=== PATIENT | female | born 2000 | race Caucasian/White ===

== ENCOUNTER 2020-05-02 13:56 | Emergency (ER) | payer OTHER ==
[~2020-05-02] VITALS: Ht 157.5 cm; Wt 136.1 kg
== END 2020-05-02 18:46 | disposition home or self-care (01) ==
LOC: ER 13:56
DX: O26.891 Other specified pregnancy related conditions, first trimester (principal); R10.2 Pelvic and perineal pain; Z3A.01 Less than 8 weeks gestation of pregnancy; Z03.818 Encounter for observation for suspected exposure to other biological agents ruled out

== ENCOUNTER 2020-11-25 10:19 | Emergency (ER) | payer OTHER ==
[~2020-11-25] VITALS: Ht 157.5 cm; Wt 136.1 kg
[2020-11-25] MEDS ORDERED: PRENATABS RX T1 EACH (10:50)
== END 2020-11-25 14:26 | disposition home or self-care (01) ==
LOC: ER 10:19
DX: O26.851 Spotting complicating pregnancy, first trimester (principal); O36.80X1 Pregnancy with inconclusive fetal viability, fetus 1; Z34.01 Encounter for supervision of normal first pregnancy, first trimester

== ENCOUNTER → 2020-12-23 | Outpatient (CLI) | payer OTHER ==
[~2020-12-23] MED LIST: PRENATABS RX T1 EACH
== END | disposition home or self-care (01) ==
LOC: PRENATAL 08:50
PROVIDERS: ATTEND Obstetrics & Gynecology Maternal & Fetal Medicine
DX: O99.211 Obesity complicating pregnancy, first trimester (principal); O36.80X1 Pregnancy with inconclusive fetal viability, fetus 1; Z36.89 Encounter for other specified antenatal screening; Z3A.12 12 weeks gestation of pregnancy

== ENCOUNTER 2021-02-08 12:44 | Outpatient (CLI) | payer OTHER | END 2021-02-08 14:24 | disposition home or self-care (01) | LOC: PRENATAL 12:44 | PROVIDERS: ATTEND Obstetrics & Gynecology Maternal & Fetal Medicine | DX: O35.0XX1 Maternal care for (suspected) central nervous system malformation in fetus, fetus 1 (principal); O35.3XX1 Maternal care for (suspected) damage to fetus from viral disease in mother, fetus 1; O98.512 Other viral diseases complicating pregnancy, second trimester; O99.212 Obesity complicating pregnancy, second trimester; O44.02 Complete placenta previa NOS or without hemorrhage, second trimester; Z36.89 Encounter for other specified antenatal screening; Z3A.18 18 weeks gestation of pregnancy ==

== ENCOUNTER 2021-03-07 08:22 | Outpatient (CLI) | payer OTHER ==
[2021-03-07] MEDS ORDERED: FOLIC ACID1 MG (16:04)
[2021-03-07] MEDS ORDERED: CLONAZEPAM1 MG (16:05)
[2021-03-07] MEDS ORDERED: PROGESTERONE200 MG (16:05)
== END 2021-03-07 10:16 | disposition home or self-care (01) ==
LOC: PRENATAL 08:22
PROVIDERS: ATTEND Obstetrics & Gynecology Maternal & Fetal Medicine
DX: O26.842 Uterine size-date discrepancy, second trimester (principal); O99.212 Obesity complicating pregnancy, second trimester; O26.872 Cervical shortening, second trimester; Z36.89 Encounter for other specified antenatal screening; Z3A.22 22 weeks gestation of pregnancy

== ENCOUNTER 2021-03-07 11:07 | Inpatient (IN) | payer OTHER ==
[~2021-03-07] VITALS: Ht 157.5 cm; Wt 138.3 kg
[2021-03-07] MEDS ORDERED: FOLIC ACID1 MG (16:04)
[2021-03-07] MEDS ORDERED: CLONAZEPAM1 MG (16:05)
[2021-03-07] MEDS ORDERED: PROGESTERONE200 MG (16:05)
== END 2021-03-08 09:55 | disposition home or self-care (01) | DRG 805 ==
LOC: LDR 11:07 → OB/GYN 03-08 05:05
PROVIDERS: ADMIT Obstetrics & Gynecology; ATTEND Obstetrics & Gynecology
PROC: 10E0XZZ Delivery of Products of Conception, External Approach (ICD-10-PCS; principal; 2021-03-07)
PROC: 3E0P7VZ Introduction of Hormone into Female Reproductive, Via Natural or Artificial Opening (ICD-10-PCS; 2021-03-07)
PROC: 3E033VJ Introduction of Other Hormone into Peripheral Vein, Percutaneous Approach (ICD-10-PCS; 2021-03-07)
DX: O60.12X0 Preterm labor second trimester with preterm delivery second trimester, not applicable or unspecified (principal); O34.32 Maternal care for cervical incompetence, second trimester; Z37.1 Single stillbirth; Z3A.22 22 weeks gestation of pregnancy

== ENCOUNTER 2023-06-15 13:35 | Emergency (ER) | payer OTHER ==
[~2023-06-15] VITALS: Ht 157.5 cm; Wt 147.4 kg
[~2023-06-15 13:35] MED LIST changes: +CLONAZEPAM1 MG; +FOLIC ACID1 MG; +PROGESTERONE200 MG
[2023-06-15 15:19] LABS: HEMATOCRIT 38.9 % (36.0-45.00); HEMOGLOBIN 13.1 g/dL (12.0-15.00); MEAN CORPUSCULAR HEMOGLOBIN 26.3 pg (27.00-32.0); MEAN CORPUSCULAR HGB CONC 33.7 g/dl (32.0-36.0); PLATELET COUNT 317 K/uL (150-450); RED BLOOD COUNT 4.99 M/uL (4.00-6.00); RED CELL DISTRIBUTION WIDTH 15.5 % (11.5-14.5)
[2023-06-15 15:42] LABS: URINE APPEARANCE Clear; URINE BILIRRUBIN Negative (NEGATIVE); URINE BLOOD Negative; URINE COLOR Yellow; URINE GLUCOSE Negative (NEGATIVE); URINE LEUKOCYTE Negative; URINE NITRATE Negative; URINE PROTEIN Negative (NEGATIVE); URINE UROBILINOGEN 0.2 E.U./dl
[2023-06-15 15:46] LABS: URINE EPITHELIAL CELLS 7.5 uL (0.0-38.8); URINE RBC 3.3 uL (0.0-20.8); URINE WBC 6.3 uL (0.0-23.2)
[2023-06-15 15:59] LABS: CREATININE SERUM 0.65 mg/dL (0.55-1.02); GFR 113.98; POTASSIUM 3.96 mEq/L (3.5-5.1)
== END 2023-06-15 17:14 | disposition home or self-care (01) ==
LOC: ER 13:36
PROVIDERS: Nurse Practitioner Family
DX: O62.0 Primary inadequate contractions (principal); R10.2 Pelvic and perineal pain; Z3A.01 Less than 8 weeks gestation of pregnancy

== ENCOUNTER 2023-08-05 09:54 | Emergency (ER) | payer OTHER ==
[~2023-08-05] VITALS: Ht 160 cm; Wt 150.1 kg
[2023-08-05] MEDS ORDERED: RINGERS SOLUTION,LACTATED 1,000 ML IV STA (11:41)
[2023-08-05 12:19] LABS: URINE APPEARANCE Clear; URINE BILIRRUBIN Negative (NEGATIVE); URINE BLOOD Moderate; URINE COLOR Dark Yellow; URINE GLUCOSE Negative (NEGATIVE); URINE LEUKOCYTE Trace; URINE NITRATE Negative; URINE PROTEIN Trace (NEGATIVE)
[2023-08-05 12:23] LABS: URINE BACTERIA 1723.4 uL (0.0-1933); URINE EPITHELIAL CELLS 32.1 uL (0.0-38.8); URINE RBC 30.6 uL (0.0-20.8); URINE WBC 9.5 uL (0.0-23.2)
[2023-08-05 12:35] LABS: HEMATOCRIT 40.2 % (36.0-45.00); HEMOGLOBIN 13.1 g/dL (12.0-15.00); MEAN CELL VOLUME 78.3 fL (80.00-100.00); MEAN CORPUSCULAR HEMOGLOBIN 25.6 pg (27.00-32.0); MEAN CORPUSCULAR HGB CONC 32.6 g/dl (32.0-36.0); PLATELET COUNT 278 K/uL (150-450); RED BLOOD COUNT 5.13 M/uL (4.00-6.00); RED CELL DISTRIBUTION WIDTH 16.4 % (11.5-14.5)
[2023-08-05 13:34] LABS: INR 0.98; PARTIAL THROMBOPLASTIN TIME 26.9 SECONDS (22.0-34.0); PROTHROMBIN TIME 10.3 SECONDS (9.0-11.5)
[2023-08-05 13:44] LABS: ALBUMIN 3.1 gm/dL (3.4-5.0); BILIRUBIN TOTAL 0.76 mg/dL (0.3-1.2); CALCIUM 8.9 mg/dL (8.5-10.1); CREATININE SERUM 0.62 mg/dL (0.55-1.02); GFR 120.37; GLOBULINA 3.7 G/DL (2.4-3.5); TOTAL PROTEIN 6.8 gm/dL (6.4-8.2)
[2023-08-06] MEDS ORDERED: PRENATABS RX T1 EACH PO (13:55)
== END 2023-08-05 14:26 ==
LOC: ER 09:54
PROVIDERS: General Practice
DX: O20.8 Other hemorrhage in early pregnancy (principal); Z3A.11 11 weeks gestation of pregnancy; O20.0 Threatened abortion

== ENCOUNTER 2023-08-08 06:00 | Day surgery (SDC) | payer OTHER ==
[~2023-08-08 06:00] MED LIST changes: +PRENATABS RX T1 EACH PO
[2023-08-08] MEDS ORDERED: MORPHINE SULFATE 4 MG/ML VIAL IV PRN (17:00)
[2023-08-08] MEDS ORDERED: PROMETHAZINE HCL 50 MG/ML AMPUL IM ONE (17:00)
[2023-08-08] MEDS ORDERED: POVIDONE-IODINE 118 ML BOTT TOP ONE (17:15)
[2023-08-08] MEDS ORDERED: CEFAZOLIN SODIUM 1,000 MG VIAL IV ONE (17:15)
== END 2023-08-08 23:10 | disposition home or self-care (01) ==
LOC: CIR.AMB 06:00
PROVIDERS: ATTEND Obstetrics & Gynecology
DX: O34.31 Maternal care for cervical incompetence, first trimester (principal); Z3A.11 11 weeks gestation of pregnancy; Z20.822 Contact with and (suspected) exposure to COVID-19

== ENCOUNTER 2024-01-07 16:08 | Outpatient (CLI) | payer OTHER | END 2024-01-07 16:47 | disposition home or self-care (01) | LOC: NST 16:08 | PROVIDERS: ATTEND Obstetrics & Gynecology Maternal & Fetal Medicine | DX: Z34.83 Encounter for supervision of other normal pregnancy, third trimester (principal) ==

== ENCOUNTER 2024-02-05 09:31 | Outpatient (CLI) | payer OTHER | END 2024-02-05 10:08 | disposition home or self-care (01) | LOC: NST 09:31 | PROVIDERS: ATTEND Obstetrics & Gynecology | DX: Z34.83 Encounter for supervision of other normal pregnancy, third trimester (principal) ==

== ENCOUNTER 2024-02-12 11:59 | Inpatient (IN) | payer OTHER ==
[~2024-02-12] VITALS: Ht 157.5 cm; Wt 2.7 kg
[2024-02-20 06:20] VITALS: BP 133/75
[2024-02-20 06:29] VITALS: BP 133/75
[2024-02-20] MEDS ORDERED: OXYTOCIN 20 UNITS/500ML RL PIGGYBAG IV ONE (07:02)
[2024-02-20] MEDS ORDERED: OXYTOCIN 500 ML IV NR (07:30)
[2024-02-20 07:46] VITALS: BP 130/75
[2024-02-20 07:54] LABS: HEMATOCRIT 37.5 % (36.0-45.00); HEMOGLOBIN 12.2 g/dL (12.0-15.00); MEAN CORPUSCULAR HEMOGLOBIN 26.3 pg (27.00-32.0); MEAN CORPUSCULAR HGB CONC 32.5 g/dl (32.0-36.0); PLATELET COUNT 265 K/uL (150-450); RED BLOOD COUNT 4.63 M/uL (4.00-6.00); RED CELL DISTRIBUTION WIDTH 15.5 % (11.5-14.5)
[2024-02-20 08:47] LABS: INR 0.94; PARTIAL THROMBOPLASTIN TIME 25.6 SECONDS (22.0-34.0); PROTHROMBIN TIME 10.3 SECONDS (9.0-11.5)
[2024-02-20 08:53] LABS: BILIRUBIN TOTAL 1.04 mg/dL (0.3-1.2); CALCIUM 9.3 mg/dL (8.5-10.1); CREATININE SERUM 0.51 mg/dL (0.55-1.02); GFR 149.44; GLOBULINA 3.6 G/DL (2.4-3.5); POTASSIUM 4.19 mEq/L (3.5-5.1); TOTAL PROTEIN 6.6 gm/dL (6.4-8.2)
[2024-02-20 11:11] VITALS: BP 135/75
[2024-02-20] MEDS ORDERED: PROMETHAZINE HCL 25 MG/ML AMPUL IV ONE (13:30)
[2024-02-20] MEDS ORDERED: MEPERIDINE HCL/PF 50 MG/ML VIAL IV ONE (13:30)
[2024-02-20] MEDS ORDERED: ONDANSETRON HCL 2 MG/ML VIAL IV ONE (15:30)
[2024-02-20] MEDS ORDERED: OXYTOCIN 10 UNITS/ML VIAL ONE ×2 (15:45→18:23)
[2024-02-20] MEDS ORDERED: CEFAZOLIN SODIUM 1,000 MG VIAL ONE (15:45)
[2024-02-20] MEDS ORDERED: ERYTHROMYCIN BASE 1 GM TUBE OP ONE (15:46)
[2024-02-20] MEDS ORDERED: CITRIC ACID/SODIUM CITRATE 30 ML BLIST.PACK PO ONE (15:48)
[2024-02-20 15:49] VITALS: BP 150/65
[2024-02-20] MEDS ORDERED: RINGERS SOLUTION,LACTATED 1,000 ML IV SCH (16:00)
[2024-02-20] MEDS ORDERED: OXYTOCIN 1,000 ML IV ONE (16:00)
[2024-02-20] MEDS ORDERED: MORPHINE SULFATE 4 MG/ML CARTRIDGE IV PRN (16:00)
[2024-02-20] MEDS ORDERED: CEFAZOLIN SODIUM 1,000 MG VIAL IV SCH (16:15)
[2024-02-20] MEDS ORDERED: CITRIC ACID/SODIUM CITRATE 30 ML BLIST.PACK PO SCH (16:15)
[2024-02-20] MEDS ORDERED: SIMETHICONE 125 MG CAPSULE PO SCH (17:00)
[2024-02-20] MEDS ORDERED: GABAPENTIN 300 MG CAPSULE PO SCH (17:00)
[2024-02-20] MEDS ORDERED: ONDANSETRON HCL 2 MG/ML VIAL IV SCH (18:00)
[2024-02-20] MEDS ORDERED: KETOROLAC TROMETHAMINE 30 MG VIAL IV SCH (18:00)
[2024-02-20] MEDS ORDERED: ACETAMINOPHEN 500 MG GEL..CAP PO SCH (18:00)
[2024-02-20] MEDS ORDERED: KETOROLAC TROMETHAMINE 30 MG VIAL ONE (18:22)
[2024-02-20] MEDS ORDERED: ONDANSETRON HCL 2 MG/ML VIAL ONE (18:23)
[2024-02-20 19:33] VITALS: BP 104/70
[2024-02-21] VITALS: BP 102/62
[2024-02-21 06:44] LABS: HEMATOCRIT 33.4 % (36.0-45.00); HEMOGLOBIN 10.9 g/dL (12.0-15.00); MEAN CELL VOLUME 80.3 fL (80.00-100.00); MEAN CORPUSCULAR HEMOGLOBIN 26.2 pg (27.00-32.0); MEAN CORPUSCULAR HGB CONC 32.7 g/dl (32.0-36.0); PLATELET COUNT 232 K/uL (150-450); RED BLOOD COUNT 4.16 M/uL (4.00-6.00); RED CELL DISTRIBUTION WIDTH 15.6 % (11.5-14.5)
[2024-02-21 08:00] VITALS: BP 134/78
[2024-02-21] MEDS ORDERED: OxyCODONE HCL 5 MG TABLET (ROXICODONE) PO PRN (08:00)
[2024-02-21] MEDS ORDERED: KETOROLAC TROMETHAMINE 10 MG TABLET PO SCH (08:00)
[2024-02-21] MEDS ORDERED: ENOXAPARIN SODIUM 40 MG/0.4 ML SYRINGE SUBCUTANEO SCH (09:00)
[2024-02-21] MEDS ORDERED: DOCUSATE SODIUM 100MG CAP PO SCH (09:00)
[2024-02-21 15:34] VITALS: BP 121/70
[2024-02-22 01:02] VITALS: BP 119/63
[2024-02-22 09:25] VITALS: BP 99/66
[2024-02-22 16:06] VITALS: BP 96/55
[2024-02-23 01:07] VITALS: BP 115/75
[2024-02-23 09:00] VITALS: BP 111/70
[2024-03-10] MEDS ORDERED: CHILDREN'S ASPI81 MG PO (09:46)
== END 2024-02-23 12:41 | disposition home or self-care (01) | DRG 788 ==
LOC: OB/GYN 02-20 05:50 → LDR 02-20 05:50 → O/R 02-20 16:26 → OB/GYN 02-20 17:20 → LDR 02-24 11:57
PROVIDERS: Obstetrics & Gynecology; ADMIT Obstetrics & Gynecology; ATTEND Obstetrics & Gynecology
PROC: 4A1HXCZ Monitoring of Products of Conception, Cardiac Rate, External Approach (ICD-10-PCS; 2024-02-20)
PROC: 10D00Z1 Extraction of Products of Conception, Low, Open Approach (ICD-10-PCS; principal; 2024-02-20 17:00)
DX: O36.8130 Decreased fetal movements, third trimester, not applicable or unspecified (principal); O62.1 Secondary uterine inertia; Z3A.39 39 weeks gestation of pregnancy; Z37.0 Single live birth; Z20.822 Contact with and (suspected) exposure to COVID-19

== ENCOUNTER 2024-02-12 12:25 | Outpatient (CLI) | payer OTHER | END 2024-02-12 13:19 | disposition home or self-care (01) | LOC: NST 12:25 | PROVIDERS: ATTEND Obstetrics & Gynecology | DX: Z34.83 Encounter for supervision of other normal pregnancy, third trimester (principal) ==

== ENCOUNTER 2024-02-15 08:52 | Outpatient (CLI) | payer OTHER | END 2024-02-15 09:34 | disposition home or self-care (01) | LOC: NST 08:52 | PROVIDERS: ATTEND Obstetrics & Gynecology | DX: Z34.83 Encounter for supervision of other normal pregnancy, third trimester (principal) ==

== ENCOUNTER → 2024-03-10 | Emergency (ER) | payer OTHER ==
[~2024-03-10] VITALS: Ht 157.5 cm; Wt 136.5 kg
[~2024-03-10] MED LIST changes: +CHILDREN'S ASPI81 MG PO
== END | disposition left against medical advice (07) ==
LOC: ER 09:43
DX: Z53.21 Procedure and treatment not carried out due to patient leaving prior to being seen by health care provider (principal)